=== PATIENT | male | born 1945 | race Caucasian/White ===

== ENCOUNTER → 2017-09-10 | Outpatient (CLI) | payer MEDICARE, OTHER | LOC: COL.LAB 13:11 | DX: Z96.642 Presence of left artificial hip joint (principal) ==

== ENCOUNTER → 2018-10-28 | Outpatient (CLI) | payer MEDICARE, OTHER | LOC: COL.RAD 10-25 10:30 | DX: M48.061 Spinal stenosis, lumbar region without neurogenic claudication (principal); M12.88 Other specific arthropathies, not elsewhere classified, other specified site; M51.34 Other intervertebral disc degeneration, thoracic region ==

== ENCOUNTER 2019-03-11 08:46 | Inpatient (IN) | payer MEDICARE, OTHER ==
[~2019-03-11] VITALS: Ht 177.8 cm; Wt 112.3 kg
[2019-03-11] MEDS ORDERED: MOBIC15 MG PO (09:06)
[2019-03-11] MEDS ORDERED: KERLONE10 MG PO (09:06)
[2019-03-11] MEDS ORDERED: DUO-KAPS1 CAP PO (09:06)
[2019-03-11] MEDS ORDERED: FLOMAX 0.40.4 MG/CAP PO (09:06)
[2019-03-11] MEDS ORDERED: COREG12.5 MG PO (09:06)
[2019-03-11] MEDS ORDERED: COZAAR 25MG25 MG/TAB PO (09:07)
[2019-03-11] MEDS ORDERED: NORCO 325 MG-51 TAB PO (09:08)
[2019-03-11] MEDS ORDERED: BENEFIBER PO (09:09)
[2019-03-11 09:26] LABS: BASO % 0.2 % (0.0-2.0); EOS % 0.2 % (0-4.0); GRAN # 10.3 (1.4-6.5); GRAN % 85.1 % (42.2-75.2); HEMATOCRIT 48.4 % (42.0-52.0); HEMOGLOBIN 16.9 g/dl (13.5-18.0); LYMPH # 0.7 (1.2-3.4); LYMPH % 5.5 % (20.0-51.0); MEAN CELL VOLUME 92 fl (80.0-100.0); MEAN CORPUSCULAR HEMOGLOBIN 32 pg (27.0-31.0); MEAN CORPUSCULAR HGB CONC 35 g/dl (33.0-37.0); MEAN PLATELET VOLUME 11.7 fl (7.4-10.4); MONO % 8.4 % (1.7-9.3); PLATELET COUNT 131 K/mm3 (130-400); RED BLOOD COUNT 5.28 M/mm3 (4.20-5.60); REDCELL DISTRIBUTION WIDTH-CV 13.2 % (11.5-14.5)
[2019-03-11 09:37] LABS: ALANINE AMINOTRANSFERASE 305 U/L (21-72); ALKALINE PHOSPHATASE 134 U/L (50-136); ANION GAP 13 mmol/L (7-16); AST,SGOT 189 U/L (15-37); BILIRUBIN,TOTAL 3.7 mg/dL (0.0-1.0); BLOOD UREA NITROGEN 27 mg/dL (9-20); C-REACTIVE PROTEIN 3.6 mg/dL (0.0-0.9); CALCIUM 9.5 mg/dL (8.4-10.2); CARBON DIOXIDE 22 mmol/L (22-30); CHLORIDE 104 mmol/L (98-107); GLUCOSE 140 mg/dL (74-106); LIPASE 114 U/L (23-300); POTASSIUM 3.9 mmol/L (3.4-5.0); SODIUM 140 mmol/L (137-145)
[2019-03-11 09:47] LABS: TROPONIN-I < 0.012 ng/mL (0.000-0.035)
[2019-03-11 11:26] LABS: COLLECTION METHOD CLEAN CATCH
[2019-03-11 11:38] LABS: MUCOUS Present /lpf; PH 5 (5-8); SQUAMOUS EPITHELIAL 0-2 /hpf; URINE APPEARANCE Clear; URINE BACTERIA None Seen /hpf; URINE BILIRUBIN Positive (NEGATIVE); URINE BLOOD Negative (NEGATIVE); URINE COLOR Amber; URINE GLUCOSE Negative (NEGATIVE); URINE KETONE 2+ (NEGATIVE); URINE LEUKOCYTE ESTERASE Negative (NEGATIVE); URINE NITRATE Negative (NEGATIVE); URINE PROTEIN(semi-quant) Negative (NEGATIVE); URINE RBC 0-2 /hpf; URINE UROBILINOGEN >=4.0 mg/dL (NEGATIVE)
[2019-03-11 12:22] VITALS: BP 106/50; PULSE 62; TEMP 98.8
[2019-03-11 18:11] LABS: INR 1.1 (0.8-3.0); PROTHROMBIN TIME 12.8 SECONDS (9.7-12.8)
[2019-03-11 19:01] VITALS: BP 128/54; PULSE 70; TEMP 99.4
[2019-03-11 23:47] VITALS: BP 129/71; PULSE 61; TEMP 99.4
[2019-03-12] VITALS (11 sets, daily range): BP systolic 124–167; BP diastolic 65–80; PULSE 62–67; TEMP 98–99.1
[2019-03-12 07:01] LABS: BASO % 0.7 % (0.0-2.0); EOS # 0.3 (0.0-0.7); EOS % 4.2 % (0-4.0); GRAN % 67.4 % (42.2-75.2); LYMPH # 0.7 (1.2-3.4); LYMPH % 12.4 % (20.0-51.0); MEAN CELL VOLUME 93 fl (80.0-100.0); MEAN CORPUSCULAR HGB CONC 34 g/dl (33.0-37.0); MEAN PLATELET VOLUME 11.4 fl (7.4-10.4); MONO # 0.9 (0.1-0.6); MONO % 14.6 % (1.7-9.3); PLATELET COUNT 116 K/mm3 (130-400); RED BLOOD COUNT 4.51 M/mm3 (4.20-5.60); REDCELL DISTRIBUTION WIDTH-CV 13.5 % (11.5-14.5)
[2019-03-12 07:18] LABS: ALBUMIN 3.1 gm/dL (3.5-5.0); BILIRUBIN,TOTAL 6.5 mg/dL (0.0-1.0); CALCIUM 8.2 mg/dL (8.4-10.2); CREATININE, serum 1.06 (0.66-1.25); POTASSIUM 3.6 mmol/L (3.4-5.0); TOTAL PROTEIN 5.9 gm/dL (6.4-8.2)
[2019-03-12 07:20] LABS: HEMOGLOBIN 14.2 g/dl (13.5-18.0); MEAN CORPUSCULAR HEMOGLOBIN 31 pg (27.0-31.0)
[2019-03-13 04:14] VITALS: BP 145/86; PULSE 70; TEMP 97.4
[2019-03-13 07:09] LABS: BASO % 0.1 % (0.0-2.0); GRAN # 11.1 (1.4-6.5); GRAN % 89.1 % (42.2-75.2); HEMATOCRIT 42.1 % (42.0-52.0); HEMOGLOBIN 14.2 g/dl (13.5-18.0); LYMPH # 0.7 (1.2-3.4); LYMPH % 5.4 % (20.0-51.0); MEAN CELL VOLUME 94 fl (80.0-100.0); MEAN CORPUSCULAR HEMOGLOBIN 32 pg (27.0-31.0); MEAN CORPUSCULAR HGB CONC 34 g/dl (33.0-37.0); MEAN PLATELET VOLUME 11.7 fl (7.4-10.4); MONO # 0.6 (0.1-0.6); MONO % 4.6 % (1.7-9.3); PLATELET COUNT 133 K/mm3 (130-400); REDCELL DISTRIBUTION WIDTH-CV 13.9 % (11.5-14.5)
[2019-03-13 07:23] LABS: ALBUMIN 3.3 gm/dL (3.5-5.0); CALCIUM 8.6 mg/dL (8.4-10.2); CREATININE, serum 0.95 (0.66-1.25); TOTAL PROTEIN 6.1 gm/dL (6.4-8.2)
[2019-03-13 07:57] LABS: BILIRUBIN UNCONJUGATED 1.2 mg/dL (0.0-1.1); BILIRUBIN,DIRECT 1.1 mg/dL (0.0-0.4); BILIRUBIN,TOTAL 2.3 mg/dL (0.0-1.0)
[2019-03-13 09:05] VITALS: BP 121/75; PULSE 62; TEMP 97.9
== END 2019-03-13 11:44 | disposition home or self-care (01) | DRG 854 ==
LOC: COL.ER 08:46 → MEDICAL 11:26
PROVIDERS: Family Medicine; Nurse Practitioner Family; Surgery; ADMIT Hospitalist
PROC: 0FC98ZZ Extirpation of Matter from Common Bile Duct, Via Natural or Artificial Opening Endoscopic (ICD-10-PCS; 2019-03-11)
PROC: BF11YZZ Fluoroscopy of Biliary and Pancreatic Ducts using Other Contrast (ICD-10-PCS; 2019-03-11)
PROC: 8E0W4CZ Robotic Assisted Procedure of Trunk Region, Percutaneous Endoscopic Approach (ICD-10-PCS; 2019-03-12)
PROC: 0FT44ZZ Resection of Gallbladder, Percutaneous Endoscopic Approach (ICD-10-PCS; principal; 2019-03-12 08:00)
DX: A41.9 Sepsis, unspecified organism (principal); K80.42 Calculus of bile duct with acute cholecystitis without obstruction; J98.11 Atelectasis; R09.02 Hypoxemia; I10 Essential (primary) hypertension; G47.33 Obstructive sleep apnea (adult) (pediatric); K21.9 Gastro-esophageal reflux disease without esophagitis; G44.209 Tension-type headache, unspecified, not intractable; M19.90 Unspecified osteoarthritis, unspecified site; Z95.0 Presence of cardiac pacemaker; Z96.643 Presence of artificial hip joint, bilateral
CPT/HCPCS: 99222-AI; 99231-AI; 99239; A4216; A9284; C1769; J0360; J0696; J1100; J1885; J2405; J2543; J2704; J2710; J3010; J7030; Q9967

== ENCOUNTER 2019-11-04 10:42 | Day surgery (SDC) | payer MEDICARE, OTHER ==
[~2019-11-04] VITALS: Ht 177.8 cm; Wt 114.7 kg
[~2019-11-04 10:42] MED LIST: BENEFIBER PO; COREG12.5 MG PO; COZAAR 25MG25 MG/TAB PO; DUO-KAPS1 CAP PO; FLOMAX 0.40.4 MG/CAP PO; KERLONE10 MG PO; MOBIC15 MG PO; NORCO 325 MG-51 TAB PO
[2019-11-04 11:06] VITALS: BP 134/97; PULSE 80; TEMP 97.6
[2019-11-04] MEDS ORDERED: HCTZ 25MG TAB25 MG PO (11:09)
[2019-11-04] MEDS ORDERED: FLOMAX 0.40.4 MG/CAP PO (11:09)
[2019-11-04] MEDS ORDERED: CIPRO 500MG TA500 MG PO (11:10)
[2019-11-04] MEDS ORDERED: FLAGYL500 MG PO (11:10)
[2019-11-04 12:42] VITALS: BP 132/87; PULSE 87; TEMP 97.6
--- NOTE | 2019-11-04 12:42 | NUR ---
Pt arrives from endo procedure via cart. Pt ambulates from cart to recliner with RN assist. Monitors on and alarms set. Call light within reach. Report received from TOAN Crystal. Pt requesting water. Pt states no pain or nausea. No family present.
[2019-11-04 12:45] VITALS: BP 115/93; PULSE 86
[2019-11-04 13:00] VITALS: BP 141/112; PULSE 65
--- NOTE | 2019-11-04 13:00 | NUR ---
Pt taking water well. No complaints. Dr. Venegas in to visit with patient.
[2019-11-04 13:15] VITALS: BP 153/97; PULSE 69
[2019-11-04 13:27] VITALS: BP 132/87; PULSE 68; TEMP 97.6
--- NOTE | 2019-11-04 13:30 | NUR ---
Discharge instructions given to patient and son. All questions answered to their satisfaction. Handed to them are a thank you card, discharge information, diagnosis information, and a discharge med sheet.
--- NOTE | 2019-11-04 13:38 | NUR ---
Pt transferred out of hospital via wheelchair and [employer] student, to waiting private vehicle driven by son.
== END 2019-11-04 13:38 | disposition home or self-care (01) ==
LOC: SDCO 10:42
DX: K83.8 Other specified diseases of biliary tract (principal); K31.89 Other diseases of stomach and duodenum; I10 Essential (primary) hypertension; R10.13 Epigastric pain; R50.9 Fever, unspecified; G47.33 Obstructive sleep apnea (adult) (pediatric); M19.90 Unspecified osteoarthritis, unspecified site; Z90.49 Acquired absence of other specified parts of digestive tract; Z79.899 Other long term (current) drug therapy; Z79.82 Long term (current) use of aspirin; Z99.89 Dependence on other enabling machines and devices
CPT/HCPCS: C1769; J2405; J2704; J3010; J7120; Q9967